=== PATIENT | female | born 1980 | race Caucasian/White ===

== ENCOUNTER 2024-10-13 11:01 | Emergency (ER) | payer MEDICAID, SELFPAY ==
[2024-10-13 11:04] VITALS: PULSE 74; RESP 20; O2SAT 98; BMI 38.2
[2024-10-13 11:06] VITALS: BP 130/89; PULSE 79; RESP 16; TEMP 36.8; O2SAT 95
--- NOTE | 2024-10-13 13:24 | EDNOTE_ITS ---
ED General RME/HPI General Chief complaint: General Adult/Misc Complain Stated complaint: MENTAL EVAL Time Seen by Provider: 10/13/24 11:40 Source: patient Arrival date/time: 10/13/24 11:01 44-year-old female with a history of psychiatric problems and schizophrenia presents to the emergency room with a chief complaint of saying there are razor blades stuck in her vagina. Mode of arrival: ambulatory Limitations: no limitations Related Data Allergies Allergy/AdvReac Type Severity Reaction Status Date / Time No Known Allergies Allergy Verified 10/13/24 11:28 Past Medical History Social History SMOKING STATUS: Former smoker ED Exam General Limitations: Present no limitations General appearance: Present alert and in no apparent distress Head Head exam: Present atraumatic Eye Eye exam: Present normal appearance, PERRL and EOMI ENT ENT exam: Present normal exam, normal oropharynx and mucous membranes moist Neck Neck exam: Present normal inspection, full ROM and trachea midline Chest Chest inspection: Present normal inspection and symmetric chest wall rise Respiratory Respiratory exam: Present normal lung sounds bilaterally Cardiovascular Cardiovascular exam: Present regular rate, normal rhythm and normal heart sounds Abdominal Exam Abdominal exam: Present soft and normal bowel sounds External exam: Present normal external exam Speculum exam: Present normal speculum exam and vaginal bleeding; Absent erythema, vaginal discharge, cervical discharge, foreign body or laceration Extremities Exam Extremities exam: Present normal inspection and full ROM Back Exam Back exam: Present normal inspection and full ROM Neurological Exam Neurological exam: Present alert, oriented X3 and CN II-XII intact Psychiatric Psychiatric exam: Present normal affect and normal mood Skin Skin exam: Present warm, dry, intact and normal color Course Quality Measures none Orders Category Date Time Status Pelvic Exam X1 Care 10/13/24 11:59 Completed Vital Signs Vital signs: Vital Signs Temperature 98.3 F 10/13/24 11:06 Pulse Rate 79 10/13/24 11:06 Respiratory Rate 16 10/13/24 11:06 Blood Pressure 130/89 H 10/13/24 11:06 Pulse Oximetry (%) 95 10/13/24 11:06 Oxygen Delivery Method Room Air 10/13/24 11:06 [facility] Patient data External records reviewed:: [facility] previous records Clinical information provided by:: patient Social determinants that could affect healthcare access:: none Patient has the following chronic illnesses:: Schizophrenia How is presenting disease/condition affected by chronic disease/condition?: caused by Evaluation data The following diagnostics were reviewed and interpreted by me:: lab results and radiology exam(s) Lab and/or radiology exams considered but not ordered:: Labs and radiology exams considered and ordered Interpretation Summary: N/A Medications Medications considered but not ordered:: No medication given Medication administrations:: No medication given Consultations Consultation(s) initiated? (list below): No Diagnosis Differential Diagnosis ED Complaint MDM: Foreign body in vagina/Bartholin cyst/urinary tract infection Most likely diagnosis given after review of the tests above:: Foreign body in vagina Admission Indicated Admission indicated?: not indicated Explain why admission is indicated or not indicated:: N/A Admission Request Was there a request for admission?: No Disposition Plan Disposition Plan: Discharge Discharge Attestation Discharge Attestation: The patient and all family members were given an opportunity to ask questions and understood the discharge instructions. Discharge instructions specifically effects, indications for sooner follow up or return to the emergency department, and the expected course of current diagnosis. Patient condition: Stable Medical Decision Making MDM Narrative MDM Narrative: 44-year-old female with a history of psychiatric problems and schizophrenia presents to the emergency room with a chief complaint of saying there are razor blades stuck in her vagina. Patient is hemodynamically stable and in no apparent distress. Patient has a history of psychiatric problems but at this time the patient denies any suicidal or homicidal ideation. Patient is at a psychiatric facility already and has management of her psychiatric problems. Physical examination shows a soft nontender abdomen. A speculum examination was completed and there is no foreign body inside the vagina. The patient is currently on her menses. Patient was discharged and educated to follow-up with primary care provider in the next 24 to 48 hours and return to the emergency room for any evidence of worsening signs or symptoms Differential Diagnosis Differential Diagnosis: Foreign body in vagina/Bartholin cyst/urinary tract infection Discharge Plan Plan Patient Disposition: HOME (Self Care) Disposition Comment: Stable Prescriptions/Referrals Referrals: Omar Henley MD [Primary Care Provider] - In 1 week Problem List Clinical Impression: Psychiatric care Patient/Caregiver Discharge Instructions Additional Instructions: Please follow-up with your primary care provider in the next 24 to 48 hours. A pelvic examination was completed and there is no foreign body inside your vagina For any evidence of worsening signs or symptoms return to the emergency room immediately Print Language: South African Stand Alone Forms: Ariela Award Info., Patient Portal Info Letter PA/SUPERVISOR ROAD ADMINISTRATOR Supervising Physician PA/SUPERVISOR ROAD ADMINISTRATOR Supervising Physician: Dr Atkins
== END 2024-10-13 13:49 | disposition home or self-care (01) ==
PROVIDERS: Emergency Provider Emergency Medicine; PCP Transplant Surgery
DX: F20.9 Schizophrenia, unspecified (principal)
CPT/HCPCS: 99283

== ENCOUNTER 2024-10-18 16:22 | Emergency (ER) | payer MEDICAID, SELFPAY ==
[2024-10-18 16:38] VITALS: BP 143/86; PULSE 76; RESP 19; TEMP 36.8; O2SAT 97
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
[2024-10-18 16:56] LABS: Collection Type, Urine Clean Catch; RBC,Urine 0 /hpf (0-3)
[2024-10-18 17:10] LABS: Basophils % (Auto) 1 % (0-2.5); Eosinophils # (Auto) 0.2 Thou/mm3 (0.0-0.5); Eosinophils % (Auto) 3 % (0-10); Hemoglobin 11.7 g/dL (12.0-16.0); Immature Granulocytes % (Auto) 0 % (0-0); Immature Granulocytes Auto 0.01 Thou/mm3 (0.00-0.00); Lymphocytes # (Auto) 2.2 Thou/mm3 (1.0-4.8); Lymphocytes % (Auto) 37 % (10-50); Mean Corpuscular HGB Conc 33.4 g/dl (31.0-37.0); Mean Corpuscular Hemoglobin 29.3 pg (25.0-35.0); Mean Corpuscular Volume 88 fL (80-100); Monocytes # (Auto) 0.4 Thou/mm3 (0.0-0.8); Monocytes % (Auto) 6 % (0-12); Neutrophils # (Auto) 3.1 Thou/mm3 (1.8-7.7); Neutrophils % (Auto) 52 % (37-80); Nucleated Red Blood Cell % 0 /100 WBC (0); Platelet Count 169 Thou/mm3 (140-440); RDW Standard Deviation 40.1 fL (36.4-46.3); Red Blood Count 3.99 Miln/mm3 (4.00-5.20); White Blood Count 5.9 Thou/mm3 (3.6-11.0)
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
[2024-10-18 17:15] LABS: Bilirubin,Urine Negative (Negative); Blood,Urine Negative (Negative); Clarity,Urine Clear (Clear/Hazy); Color,Urine Colorless (Lt Yel-Yel); Glucose, Urine Negative (Negative); Ketones,Urine Negative (Negative); Leukocyte Esterase,Urine Negative (Negative); Nitrite,Urine Negative (Negative); Protein,Urine Negative (Neg - Trace); Specific Gravity,Urine 1.006 (1.001-1.035); Squamous Epithelial Cell,Urine < 1 /hpf (0-5); Urobilinogen,Urine Negative mg/dL (0.0-1.0); WBC,Urine < 1 /hpf (0-5)
[2024-10-18 17:24] LABS: Alanine Aminotransferase 10 U/L (10-49); Albumin/Globulin Ratio 1.5 (1.2-2.2); Alkaline Phosphatase 59 U/L (46-116); Anion Gap 5 (7-16); Aspartate Amino Transferase 11 U/L (0-34); BUN/Creatinine Ratio 25 Ratio (12-20); Bilirubin,Total 0.4 mg/dL (0.3-1.2); Blood Urea Nitrogen 15 mg/dL (9-23); Calcium 9.1 mg/dL (8.3-10.6); Calcium (Corrected) 9.1 mg/dL (8.5-10.1); Carbon Dioxide 29.3 mMol/L (20.0-31.0); Chloride 107 mMol/L (98-107); Creatinine (Component) 0.6 mg/dL (0.6-1.3); Globulin 2.7 gm/dL (2.3-3.5); Glucose 78 mg/dL (74-106); Osmolality,Calculated 281 (275-295); Potassium 3.5 mMol/L (3.4-5.1); Sodium 141 mMol/L (136-145); Total Protein 6.7 gm/dL (5.7-8.2); eGFR > 60 See Note
[2024-10-18 17:31] LABS: HCG Qualitative,Urine Negative
[2024-10-18 17:37] VITALS: PULSE 75; RESP 18; O2SAT 97
[2024-10-18 17:59] LABS: Alcohol, Urine Negative (Negative); Amphetamine/Methamp Scrn,U Negative (Negative); Barbiturate Screen,Urine Negative (Negative); Benzodiazepines Screen,Urine Negative (Negative); Benzoylecgonine Screen, Ur Negative (Negative); Fentanyl Screen,Urine Negative (Negative); Opiate Screen,Urine Negative (Negative); THC Screen,Urine Negative (Negative)
--- NOTE | 2024-10-18 23:07 | PD.EDADDENDU ---
Emergency Room Addendum Addendum Narrative: 2300: Care assumed from Juliocesar Piña NP. Past medical, surgical, social and family history reviewed. Vitals and home medications reviewed. Results and treatment plan discussed. I will assume the care of the patient at this time and will follow the patient, pending 5150 evaluation. Please refer to the emergency department record for history and examination from initial visit. The patient was placed in ED observation care at 10/18/24 at 2300 hours. The patient was placed in ED observation care because of pending psychiatric evaluation. The patients past medical history, social history, and family history were reviewed. The plan of care will include serial examinations. Patient remained stable while under my care. 0600: Care signed out to Dr. Song (emergency physician). Past medical, surgical, social and family history reviewed. Vitals and home medications reviewed. Results and treatment plan discussed. They will assume the care of the patient at this time and will follow the patient. At this time, observation has ended.
[2024-10-19] VITALS (7 sets, daily range): BP systolic 105–138; BP diastolic 70–88; PULSE 67–87; RESP 16–19; TEMP 36.6–37; O2SAT 96–98
--- NOTE | 2024-10-19 06:20 | EDNOTE_ITS ---
Emergency Room Addendum <Leonie Lee - Last Filed: 10/19/24 11:06> Addendum Narrative: 0600: Care assumed from Dr. Dietz, the previous shift emergency physician. Past medical, surgical, social and family history reviewed. Vitals and home medications reviewed. I will assume the care of the patient at this time, pending mental health evaluation. Please refer to the emergency department record for history and examination from initial visit.?The following addendum documentation note is intended to reflect any pending information, findings, or radiology results not included in the patient?s initial chart. Patient has been evaluated by ASW and upheld the 5150 hold. At this time patient is pending LPS facility placement. <Abdulkadir Song MD - Last Filed: 10/19/24 14:59> Addendum Narrative: 0600: Care assumed from Dr. Dietz, the previous shift emergency physician. Past medical, surgical, social and family history reviewed. Vitals and home medications reviewed. I will assume the care of the patient at this time, pending mental health evaluation. Please refer to the emergency department record for history and examination from initial visit.?The following addendum documentation note is intended to reflect any pending information, findings, or radiology results not included in the patient?s initial chart. Patient has been evaluated by ASW and upheld the 5150 hold. At this time patient is pending LPS facility placement. During this shift the patient has had no outburst has been comfortable been fed and waiting for transition social worker to find a complete placement
--- NOTE | 2024-10-19 07:12 | PC.NURSE ---
Received report and assumed care of patient.
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
--- NOTE | 2024-10-19 12:51 | PC.NURSE ---
Received call from Ainsley at [facility] and gave report on patient. Awaiting call back to see if patient to be accepted for placement.
--- NOTE | 2024-10-19 14:17 | PC.SS ---
ASW contacted the following [facility] facilities for update on referral sent: [facility]-no female beds [facility] beds available [facility]-not on [facility], referral faxed [facility]- left voicemail [facility]-referral [place]-No female beds [facility]-referral [facility]-referral being reviewed [facility]-declined due to acuity [facility]-declined due to acuity [facility]- declined due to acuity [facility]-no female beds [facility]- left voicemail, they were reviewing referral earlier [facility]-no beds available [facility]-left voicemail [facility]-acuity level high, referral inque
--- NOTE | 2024-10-19 18:37 | PD.EDADDENDU ---
Emergency Room Addendum Addendum Narrative: 1800: Care assumed from Dr. Song, the previous shift emergency physician. Past medical, surgical, social and family history reviewed. Vitals and home medications reviewed. Results and treatment plan discussed. I will assume the care of the patient at this time and will follow the patient, pending 5150/LPS placement. Please refer to the emergency department record for history and examination from initial visit. Patient was placed in observation for treatment and monitoring of psychiatric symptoms, at 1800 10/19/2024. Symptoms consist of suicidal ideation and depression. Treatment plan includes psychiatric consult, reassessments, and possible placement into psychiatric facility. The patient had access and provided personal hygiene, shower, food, water, and daily medications. 1945: Patient endorses having a headache. Tylenol 650 ordered. 0600: Care signed out to Dr. Burrows (emergency physician). Past medical, surgical, social and family history reviewed. Vitals and home medications reviewed. Results and treatment plan discussed. They will assume the care of the patient at this time and will follow the patient, pending 5150/LPS placement. At this time, observation has ended.
[2024-10-19] MEDS: ACETAMINOPHEN 325 MG TABLET 650 MG PO (19:53)
--- NOTE | 2024-10-19 23:49 | PC.NURSE ---
pt ambulated to bathroom with an even and steady gait. This proposal manager writer offered pt a snack, gave her juice, pudding, chips. sandstone inspector repairer asked to watch pt while this proposal manager writer went to nutrition room. Pt sitting up in rthendara, talking to self, laughing and eating snack.
[2024-10-20] VITALS (9 sets, daily range): BP systolic 127–144; BP diastolic 78–99; PULSE 56–79; RESP 12–18; TEMP 36.4–36.8; O2SAT 96–99
[2024-10-20] MEDS: MELATONIN 3 MG TABLET PO ×2 (01:30→20:56)
--- NOTE | 2024-10-20 01:35 | PC.NURSE ---
Pt requesting sleep aid, MD mercedes made aware. New orders entered-med administered.
--- NOTE | 2024-10-20 04:03 | PC.NURSE ---
WE HAD DOWN TIME FROM [id number].
--- NOTE | 2024-10-20 06:36 | PD.EDADDENDU ---
Emergency Room Addendum Addendum Narrative: 0600: Care assumed from Dr. Marcel Dietz, the previous shift emergency physician. Past medical, surgical, social and family history reviewed. Vitals and home medications reviewed. I will assume the care of the patient at this time pending mental health evaluation. Please refer to the emergency department record for history and examination from initial visit.?The following addendum documentation note is intended to reflect any pending information, findings, or radiology results not included in the patient?s initial chart.
--- NOTE | 2024-10-20 07:15 | PC.CC ---
Cheyenne PEMBERTON made contact with Nova at [facility] who reports they will have some d/c today and will advise at approx. 10am if they are able to accommodate patient. [facility] reports that they are going to have openings later this morning and will keep patient in queue.
--- NOTE | 2024-10-20 08:45 | PC.NURSE ---
pt is quiet and alert at beside. finished breakfast. 1to1 sister provided
--- NOTE | 2024-10-20 09:49 | PC.CC ---
Cheyenne ANNE re-submitted referral to LPS facilities via [facility].
--- NOTE | 2024-10-20 10:20 | PC.NURSE ---
pt requested stool softener + laxative to help with bowel movement. waiting on pharmacy to bring up Docusate
[2024-10-20] MEDS: bisacodyL 10 MG SUPP PR (10:49)
[2024-10-20] MEDS: DOCUSATE SOD 250 MG CAPSULE PO (11:07)
--- NOTE | 2024-10-20 12:30 | PC.CC ---
Addendum entered by Cheyenne Castaneda 10/20/24 13:56: 1353 Ron Tran reports that they review packet ASW provided them with behavioral update. 1351 Rodolfo Gastonmi reports packet is in review. 1347 [facility] requested packet be refaxed. ASW refaxed packet to . Original Note: [facility] declined patient due to high acuity.
--- NOTE | 2024-10-20 12:43 | PC.NURSE ---
pt is eating lunch independently and quietly
--- NOTE | 2024-10-20 23:15 | PC.NURSE ---
PATIENT RESTING COMFORTABLY AND APPEARS TO BE IN NO ACUTE DISTRESS, 1 ON 1 SITTER AT BEDSIDE, PT WAITING FOR TRANSFER TO ACUTE PSYCH FACILITY, WILL CONTINUE WITH PLAN OF CARE
[2024-10-21 03:13] VITALS: BP 133/95; PULSE 83; RESP 18; TEMP 36.7; O2SAT 97
--- NOTE | 2024-10-21 05:43 | EDNOTE_ITS ---
Emergency Room Addendum Addendum Narrative: 1800: Care assumed from Dr. Burrows, the previous shift emergency physician. Past medical, surgical, social and family history reviewed. Vitals and home medications reviewed. Results and treatment plan discussed. I will assume the care of the patient at this time and will follow the patient, pending 5150/LPS placement. Please refer to the emergency department record for history and examination from initial visit. Patient was placed in observation for treatment and monitoring of psychiatric symptoms, at 1800 10/20/2024. Symptoms consist of suicidal ideation and depression. Treatment plan includes psychiatric consult, reassessments, and possible placement into psychiatric facility. The patient had access and provided personal hygiene, shower, food, water, and daily medications. 0600: Care signed out to Dr. Burrows (emergency physician). Past medical, surgi samantha, social and family history reviewed. Vitals and home medications reviewed. Results and treatment plan discussed. They will assume the care of the patient at this time and will follow the patient, pending 5150/LPS placement. At this time, observation has ended.
--- NOTE | 2024-10-21 06:16 | EDNOTE_ITS ---
Emergency Room Addendum <Tosin Gomez - Last Filed: 10/21/24 09:28> Addendum Narrative: 0600: Care assumed from Dr. Dietz, the previous shift emergency physician. Past medical, surgical, social and family history reviewed. Vitals and home medications reviewed. I will assume the care of the patient at this time pending Psychiatric (5150) placement. Please refer to them emergency department record for history and examination from initial visit.?The following addendum documentation note is intended to reflect any pending information, findings, or radiology results not included in the patient?s initial chart. 0800: Spoke with perinatal social worker and was informed that patient is currently on routine medication, but has not been on medication since arrival to ED. Patient will be prescribed Depakote and Olanzapine. <Leonie Lee - Last Filed: 10/21/24 18:05> Addendum Narrative: 0600: Care assumed from Dr. Dietz, the previous shift emergency physician. Past medical, surgical, social and family history reviewed. Vitals and home medications reviewed. I will assume the care of the patient at this time pending Psychiatric (5150) placement. Please refer to them emergency department record for history and examination from initial visit.?The following addendum documentation note is intended to reflect any pending information, findings, or radiology results not included in the patient?s initial chart. 0800: Spoke with perinatal social worker and was informed that patient is currently on routine medication, but has not been on medication since arrival to ED. Patient will be prescribed Depakote and Olanzapine. Patient has been accepted at [facility]. Patient has remained stable throughout the emergency department visit.
--- NOTE | 2024-10-21 06:23 | PC.NURSE ---
PT SLEPT THROUGHOUT THE NIGHT, NO ISSUES NOTED, NO FACILITIES CALLED IN REGARDS TO PATIENT, WILL CONTINUE WITH PLAN OF CARE, PT STILL WAITING FOR ACUTE PSYCH PLACEMENT
[2024-10-21 06:28] VITALS: BP 125/78; PULSE 68; RESP 17; TEMP 36.4; O2SAT 96
--- NOTE | 2024-10-21 07:29 | PC.CC ---
Cheyenne PEMBERTON resubmitted packet via [facility] with updated nursing staff notes.
--- NOTE | 2024-10-21 07:30 | PC.NURSE ---
breakfast tray provided.
--- NOTE | 2024-10-21 11:00 | PC.NURSE ---
pharmacy to bring meds.
--- NOTE | 2024-10-21 12:00 | PC.NURSE ---
lunch tray provided.
[2024-10-21] MEDS: DIVALPROEX SOD DR 500 MG TABLET.DR PO (12:25)
[2024-10-21] MEDS: OLANZapine 2.5 MG TABLET PO (12:26)
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
--- NOTE | 2024-10-21 15:05 | PC.CC ---
1509 Brittny LA-Prashant reported that patient is still in queue. 1508 Dari Fernándezshaun Rivero-Patient remains in the queue. 1506 Rodolfo Lopes [facility] patient denied due to acuity. 1502 ASW made contact with [facility] and they continue to decline the patient due to acuity.
--- NOTE | 2024-10-21 15:16 | PC.CC ---
Huyen, Archives Technician for [facility] who reports that patient will not be able to return to their facility and when the secondary hold expires if she is not placed then Pancho Niño the conservator will have to assist with placement. Huyen reports that someone at the hospital provided report to [facility] and stated that patient was not presenting with delusions and for ASW to make contact with Pancho. ASW informed Huyen that this ASW had been in contact with Pancho. ASW attempted to make telephone contact with Pancho and left voicemail.
--- NOTE | 2024-10-21 16:11 | PC.CC ---
Adina with [facility] made contact with ASW who reports the patient has been placed with [facility] and they would be in contact with ASW to arrange transportation. ASW provided update to Dr. Burrows and carbon lamp cleaner Mindi of discharge plan.
--- NOTE | 2024-10-21 18:00 | PC.NURSE ---
dinner tray provided.
--- NOTE | 2024-10-21 18:16 | PD.EDADDENDU ---
Emergency Room Addendum Addendum Narrative: 1814: Care assumed from Dr. Burrows, the previous shift emergency physician. Past medical, surgical, social and family history reviewed. Vitals and home medications reviewed. Results and treatment plan discussed. I will assume the care of the patient at this time and will follow the patient, pending transfer to psychiatric facility.
[2024-10-21 18:27] VITALS: BP 122/77; PULSE 80; RESP 16; TEMP 36.8; O2SAT 97
[2024-10-21 21:30] VITALS: BP 120/88; PULSE 88; RESP 20; TEMP 36.8; O2SAT 98
[2024-10-21 23:03] VITALS: BP 116/70; PULSE 81; RESP 20; TEMP 36.9; O2SAT 97
--- NOTE | 2024-10-21 23:15 | PC.NURSE ---
report given to [facility] [phone]
== END 2024-10-21 23:15 ==
PROVIDERS: Registered Nurse General Practice; Emergency Provider Emergency Medicine
DX: Z04.6 Encounter for general psychiatric examination, requested by authority (principal); R45.6 Violent behavior; Z75.1 Person awaiting admission to adequate facility elsewhere; Z78.1 Physical restraint status
CPT/HCPCS: 36415; 80053; 80307; 80320; 81001; 81025; 85025; 96127; 99285; A9270; G0480